=== PATIENT | female | born 1980 | race Caucasian/White ===

== ENCOUNTER 2016-10-06 02:47 | Emergency (ER) | payer OTHER ==
[2016-10-06 03:29] LABS: BASOPHIL 0.1 % (0-2); EOSINOPHIL 0.3 % (0-5); HCT 42.4 % (37.0-47.0); LYMPHOCYTE 11.2 % (15-48); MCH 28.6 pg (25.0-31.0); MCV 86.7 fL (78.0-100.0); MONOCYTE 2.3 % (0-12); MPV 10.9 fL (6.0-9.5); NEUTROPHIL 86.1 % (41-80); PLT 322 K/uL (150-400); RBC 4.89 M/uL (4.20-5.40); RDW 14.7 % (11.5-14.0); WBC 15.3 K/uL (4.0-10.5)
[2016-10-06 03:30] LABS: BILIRUBIN NEGATIVE (NEGATIVE); BLOOD NEGATIVE Ery/uL (NEGATIVE); CLARITY CLEAR (CLEAR); COLOR YELLOW (YELLOW); GLUCOSE (U) NORMAL (NORMAL); KETONE (U) NEGATIVE (NEGATIVE); LEUKOCYTES NEGATIVE Leu/uL (NEGATIVE); NITRITE NEGATIVE (NEGATIVE); PROTEIN NEGATIVE (NEGATIVE); SPECIFIC GRAVITY <=1.005 (1.001-1.030); UROBILINOGEN 0.2 mg/dL (0.2-1.0); pH 6.5 (5.0-9.0)
[2016-10-06 03:46] LABS: ALBUMIN 3.8 g/dL (3.5-5.0); BILIRUBIN - TOTAL 0.6 mg/dL (0.1-1.0); CREATININE 0.8 mg/dL (0.5-1.0); GLOBULIN (CALCULATION) 2.4 g/dL (2.2-4.2); POTASSIUM 3.9 mmol/L (3.5-5.1); TOTAL PROTEIN 6.2 g/dL (6.4-8.3)
== END 2016-10-06 05:55 | disposition home or self-care (01) ==
LOC: FER 02:47
PROVIDERS: Emergency Medicine Emergency Medical Services
DX: L50.0 Allergic urticaria (principal); Z90.49 Acquired absence of other specified parts of digestive tract; Z88.1 Allergy status to other antibiotic agents; Z79.899 Other long term (current) drug therapy
CPT/HCPCS: 36415; 71010; 80053; 81003; 85025; 93005; 96372; J1100